=== PATIENT | female | born 1965 | race Caucasian/White ===

== ENCOUNTER 2016-09-08 15:40 | Inpatient (IN) | payer OTHER ==
[~2016-09-08] VITALS: Ht 170.2 cm; Wt 80.4 kg
[~2016-09-08 15:40] MED LIST: CARD120T4 PO; ESTR.625 PO; FURO1TAB60 PO; GABA600T PO; INSU1INJ14 SQ; LEVO25TA4 PO; LISI10TA3 PO; MS C30TA PO; POTA8TAB PO; PROT40TA PO; TOPA100T11 PO; XARE10TA PO; ZITHTAB PO
[2016-09-08 15:42] VITALS: BP 146/74; PULSE 92; RESP 20; TEMP 98.2; O2SAT 97
--- NOTE | 2016-09-08 16:09 | PD ---
Physical Exam Time Seen by Provider: 16:[address] Becerril sent for admission to hospital with consult to podiatry for IV antibx, MRI of R foot. Pt has R foot diabetic ulcer w/ cellulitis and questionable sepsis. Deneis nausea w/o vomiting. Denies fever. Right foot sx started 4 days ago. VSS Seen in triage. Awaiting bed placement. Data Data Last Documented VS Vital Signs Date Time Temp Pulse Resp B/P Pulse Ox O2 Delivery O2 Flow Rate FiO2 09/08/16 15:42 98.2 92 20 146/74 97 Room Air MDM Supervised Visit with LEÓN: Sofía Stevens Sep 08, 2016 16:09
[2016-09-08] MEDS ORDERED: PIPERACIL-TAZO 4.5 GM PREMIX 100 ML IV STA (17:40)
[2016-09-08] MEDS ORDERED: VANCOMYCIN INJ 1,000 MG in SODIUM CHLOR 0.9% 250 ML INJ 250 ML IV STA (17:40)
[2016-09-08] MEDS ORDERED: SODIUM CHLOR 0.9% 1000 ML INJ 1,000 ML IV ONE ×2 (17:40)
[2016-09-08] MEDS ORDERED: SODIUM CHLOR 0.9% 1000 ML INJ 400 ML IV ONE (17:40)
--- NOTE | 2016-09-08 17:49 | PD ---
HPI Chief Complaint: Skin Problem Time Seen by Provider: 17:47 Travel History International Travel<30 days: No Contact w/Intl Traveler<30days: No Traveled to known affect area: No History of Present Illness HPI Patient comes in at the advice of her airborne mission systems superintendent Dr. Becerril for right foot diabetic ulcer with cellulitis and questionable sepsis. Dr. Becerril patient admitted to the hospitalist, consult to airborne mission systems superintendent Dr. Barnes, IV antibiotics, and MRI. Patient states she first noticed the wound 4 days ago. Patient reports she suffers from neuropathy and normally doesn't feel anything but she is having pain with this when walking or standing and is sending a throbbing pain up her leg. Patient denies any fevers, nausea, vomiting, or known trauma. Patient reports she took one dose of antibiotics last night orally but denies doing anything else. Patient states that her blood sugars are running high and she is feeling not quite her normal self. PFSH Past Medical History Arthritis: Yes (RHEUMATOID) Asthma: No Blood Disorders: No Heart Rhythm Problems: Yes (hx) Cancer: No Cardiovascular Problems: Yes (a fib had ablation and "gone away") High Cholesterol: No Chest Pain: No Congestive Heart Failure: No COPD: No Diabetes: Yes (TYPE 1 DIABETIC) Patient Takes Glucophage: Yes Endocrine: Yes Genitourinary: No Hepatitis: No Hiatal Hernia: No Hypertension: Yes Immune Disorder: Yes (rheumatoid) Musculoskeletal: No Neurologic: No Psychiatric: No Reproductive: Yes (hx endometrisosis, ovarian cyst) Respiratory: No Thyroid Disease: Yes (HYPOTHYROIDISM) ?: Not Past Surgical History Abdominal Surgery: Yes (APPENDECTOMY) AICD: No Appendectomy: Yes Eye Surgery: Yes (RIGHT EYE SURGERY FOR SCLERAL REINFORCEMENT, cataracts) Gynecologic Surgery: Yes (HYSTERECTOMY) Hysterectomy: Yes Joint Replacement: No Neurologic Surgery: Yes (LUMBAR LAMINECTOMY) Pacemaker: No Other Surgery: Yes (BREAST SURGERY) Social History Alcohol Use: No Tobacco Use: No Substance Use: No Allergies-Medications (Allergen,Severity, Reaction): Coded Allergies: No Known Allergies (Verified , 09/08/16) Reported Meds & Prescriptions Reported Meds & Active Scripts Active Reported Synthroid (Levothyroxine Sodium) 300 Mcg Tab 300 Mcg PO DAILY Covaryx (Estrogens, Esterified-Methyltestosterone) 1.25-2.5 Mg Tab 1 Tab PO HS Xarelto (Rivaroxaban) 10 Mg Tab 10 Mg PO EVERY OTHER DAY @ HS Tresiba Flextouch Pen Inj (Insulin Degludec Inj) 300 unit/3 ML Pen 50 Units SQ HS Topamax (Topiramate) 100 Mg Tab 100 Mg PO BID Ms Contin (Morphine Sulfate) 30 Mg Tab 30 Mg PO HS Lisinopril 10 Mg Tab 10 Mg PO HS Lasix (Furosemide) 40 Mg Tab 40 Mg PO HS Gabapentin 600 Mg Tab 600 Mg PO HS Potassium Chloride ER (Potassium Chloride) 8 Meq Tab 8 Meq PO HS Review of Systems Except as stated in HPI: all other systems reviewed are Neg Physical Exam Narrative GENERAL: Well-developed, well nourished, in no acute distress, and non-ill appearing. SKIN: Patient is a also plantar surface of the right foot first metatarsal distally. There is surrounding erythematous. Patient reports tenderness to palpation. No crepitus or fluctuation. There is some streaking proximally. It has been outlined by patient's airborne mission systems superintendent. HEAD: Atraumatic. Normocephalic. EYES: Pupils equal and round. EOMI. No scleral icterus. No injection or drainage. ENT: No nasal bleeding or discharge. Mucous membranes pink and moist. NECK: Trachea midline. Supple. No nuclear rigidity. CARDIOVASCULAR: Dorsal pulses 2+, intact, equal bilaterally. Capillary refill less than 2 seconds. RESPIRATORY: No accessory muscle use. No respiratory distress. MUSCULOSKELETAL: No obvious deformities. No clubbing. No cyanosis. No edema. Full range of motion. NEUROLOGICAL: Awake and alert. No obvious cranial nerve deficits. Motor grossly within normal limits. Normal speech. PSYCHIATRIC: Appropriate mood and affect; insight and judgment normal. Data Data Last Documented VS Vital Signs Date Time Temp Pulse Resp B/P Pulse Ox O2 Delivery O2 Flow Rate FiO2 09/08/16 18:27 80 15 112/74 97 Room Air 09/08/16 15:42 98.2 Orders Electrocardiogram (09/08/16 17:40) Complete Blood Count With Diff (09/08/16 17:40) Comprehensive Metabolic Panel (09/08/16 17:40) Prothrombin Time / Inr (Pt) (09/08/16 17:40) Act Partial Throm Time (Ptt) (09/08/16 17:40) Lactic Acid Sepsis Protocol (09/08/16 17:40) Urinalysis - C+S If Indicated (09/08/16 17:40) Blood Culture (09/08/16 17:40) Wound Culture And Gram Stain (09/08/16 17:40) Blood Glucose (09/08/16 17:40) Ecg Monitoring (09/08/16 17:40) Iv Access Insert/Monitor (09/08/16 17:40) Oximetry (09/08/16 17:40) Oxygen Administration (09/08/16 17:40) Piperacil-Tazo 4.5 Gm Premix (Zosyn 4.5 (09/08/16 17:40) Vancomycin Inj (Vancomycin Inj) (09/08/16 17:40) Sodium Chlor 0.9% 1000 Ml Inj (Ns 1000 M (09/08/16 17:40) Sodium Chlor 0.9% 1000 Ml Inj (Ns 1000 M (09/08/16 17:40) Sodium Chlor 0.9% 1000 Ml Inj (Ns 1000 M (09/08/16 17:40) C-Reactive Protein (Crp) (09/08/16 17:46) Westergren Sedimentation Rate (09/08/16 17:46) Foot, Complete ([id number]) (09/08/16 ) Admit To Inpatient (09/08/16 ) Vital Signs (Adult) TOÑO.Q4H (09/08/16 19:41) Diet 1800 Ada Cons Carb (09/09/16 Breakfast) Inpatient Certification (09/08/16 ) Activity Oob With Assistance (09/08/16 19:41) Consult Podiatry (09/08/16 ) Consult Wound / Ostomy Nurse (09/08/16 ) Insulin Aspart Supplemtl Scale (Novolog (09/08/16 21:00) Bedside Glucose TOÑO.AC&HS (09/08/16 19:41) Insulin Detemir Inj (Levemir Inj) (09/08/16 21:00) Admit Order (Ed Use Only) (09/08/16 19:47) Labs Laboratory Tests Test 09/08/16 09/08/16 18:10 19:45 White Blood Count 14.9 TH/MM3 Red Blood Count 3.87 MIL/MM3 Hemoglobin 11.3 GM/DL Hematocrit 33.6 % Mean Corpuscular Volume 86.7 FL Mean Corpuscular Hemoglobin 29.1 PG Mean Corpuscular Hemoglobin 33.5 % Concent Red Cell Distribution Width 14.1 % Platelet Count 348 TH/MM3 Mean Platelet Volume 10.2 FL Neutrophils (%) (Auto) 79.1 % Lymphocytes (%) (Auto) 12.0 % Monocytes (%) (Auto) 7.0 % Eosinophils (%) (Auto) 0.6 % Basophils (%) (Auto) 1.3 % Neutrophils # (Auto) 11.8 TH/MM3 Lymphocytes # (Auto) 1.8 TH/MM3 Monocytes # (Auto) 1.0 TH/MM3 Eosinophils # (Auto) 0.1 TH/MM3 Basophils # (Auto) 0.2 TH/MM3 CBC Comment DIFF FINAL Differential Comment Erythrocyte Sedimentation Rate 54 mm/hr Prothrombin Time 9.9 SEC Prothromb Time International 0.9 RATIO Ratio Activated Partial 28.0 SEC Thromboplast Time Sodium Level 135 MEQ/L Potassium Level 3.8 MEQ/L Chloride Level 100 MEQ/L Carbon Dioxide Level 29.2 MEQ/L Anion Gap 6 MEQ/L Blood Urea Nitrogen 24 MG/DL Creatinine 1.29 MG/DL Estimat Glomerular Filtration 44 ML/MIN Rate Random Glucose 126 MG/DL Lactic Acid Level 0.8 mmol/L Calcium Level 8.8 MG/DL Total Bilirubin 0.3 MG/DL Aspartate Amino Transf 17 U/L (AST/SGOT) Alanine Aminotransferase 29 U/L (ALT/SGPT) Alkaline Phosphatase 99 U/L C-Reactive Protein 11.00 MG/DL Total Protein 7.6 GM/DL Albumin 3.4 GM/DL Urine Color YELLOW Urine Turbidity CLEAR Urine pH 7.0 Urine Specific [place] 1.008 Urine Protein NEG mg/dL Urine Glucose (UA) NEG mg/dL Urine Ketones NEG mg/dL Urine Occult Blood NEG Urine Nitrite NEG Urine Bilirubin NEG Urine Urobilinogen LESS THAN 2.0 MG/DL Urine Leukocyte Esterase NEG Urine RBC LESS THAN 1 /hpf Urine WBC LESS THAN 1 /hpf Urine Squamous Epithelial 1 /hpf Cells Microscopic Urinalysis Comment CATH-CULT NOT IND MDM Medical Decision Making Medical Screen Exam Complete: Yes Emergency Medical Condition: Yes Differential Diagnosis Diabetic wound infection, cellulitis, sepsis, osteomyelitis, other Narrative Course Patient was seen and examined. Initial laboratory lactic signs are obtained and reviewed. Patient given IV antibiotics. Discussed patient with Dr. Mccabe , who saw and evaluated the patient and is in agreement with plan of care and disposition. Patient is agreeable for admission. All questions were answered. Physician Communication Physician Communication [address] Garcia, who is agreeable to admit the patient to Dr. Bernardo's service. Diagnosis Primary Impression: Diabetic foot ulcer associated with type 1 diabetes mellitus Qualified Code: E10.621 - Diabetic ulcer of right foot associated with type 1 diabetes mellitus, unspecified part of foot, unspecified ulcer stage Additional Impression: Cellulitis Qualified Code: L03.115 - Cellulitis of right lower extremity Admitting Information Admitting Physician Requests: Admit Condition: Stable Jay Leigh Sep 08, 2016 17:49
[2016-09-08] MEDS ORDERED: SYNT300T PO (18:23)
[2016-09-08] MEDS ORDERED: COVATAB PO (18:23)
[2016-09-08 18:27] VITALS: BP 112/74; PULSE 80; RESP 15; O2SAT 97
[2016-09-08 18:32] LABS: AUTOMATED NEUTROPHIL # 11.8 TH/MM3 (1.8-7.7); BASOPHIL # 0.2 TH/MM3 (0-0.2); BASOPHIL % 1.3 % (0.0-2.0); EOSINOPHIL # 0.1 TH/MM3 (0-0.4); EOSINOPHIL % 0.6 % (0.0-4.0); HEMATOCRIT 33.6 % (35.0-46.0); HEMO FLAGS DIFF FINAL; LYMPHOCYTE # 1.8 TH/MM3 (1.0-4.8); MEAN CELL VOLUME 86.7 FL (80.0-100.0); MEAN CORPUSCULAR HEMOGLOBIN 29.1 PG (27.0-34.0); MEAN CORPUSCULAR HGB CONC 33.5 % (32.0-36.0); NEUT % 79.1 % (16.0-70.0); PLATELET COUNT 348 TH/MM3 (150-450); RED BLOOD COUNT 3.87 MIL/MM3 (4.00-5.30); RED CELL DISTRIBUTION WIDTH 14.1 % (11.6-17.2); WHITE BLOOD COUNT 14.9 TH/MM3 (4.0-11.0)
[2016-09-08 18:43] LABS: INTERNATIONAL NORMALIZED RATIO 0.9 RATIO; PROTHROMBIN TIME - PATIENT 9.9 SEC (9.8-11.6)
[2016-09-08 18:46] LABS: ANION GAP 6 MEQ/L (5-15); AST (GOT) 17 U/L (15-37); BICARBONATE 29.2 MEQ/L (21.0-32.0); BLOOD UREA NITROGEN 24 MG/DL (7-18); CHLORIDE 100 MEQ/L (98-107); GLOMERULAR FILTRATION RATE 44 ML/MIN (>89); POTASSIUM 3.8 MEQ/L (3.5-5.1); SODIUM (NA) 135 MEQ/L (136-145)
[2016-09-08 18:49] LABS: ALKALINE PHOSPHATASE 99 U/L (45-117); ALT (GPT) 29 U/L (10-53); TOTAL BILIRUBIN ADULT 0.3 MG/DL (0.2-1.0)
--- NOTE | 2016-09-08 19:14 | PD ---
Data Data Last Documented VS Vital Signs Date Time Temp Pulse Resp B/P Pulse Ox O2 Delivery O2 Flow Rate FiO2 09/08/16 18:27 80 15 112/74 97 Room Air 09/08/16 15:42 98.2 Orders Electrocardiogram (09/08/16 17:40) Complete Blood Count With Diff (09/08/16 17:40) Comprehensive Metabolic Panel (09/08/16 17:40) Prothrombin Time / Inr (Pt) (09/08/16 17:40) Act Partial Throm Time (Ptt) (09/08/16 17:40) Lactic Acid Sepsis Protocol (09/08/16 17:40) Urinalysis - C+S If Indicated (09/08/16 17:40) Blood Culture (09/08/16:40) Wound Culture And Gram Stain (09/08/16:40) Blood Glucose (09/08/16 17:40) Ecg Monitoring (09/08/16 17:40) Iv Access Insert/Monitor (09/08/16:40) Oximetry (09/08/16:40) Oxygen Administration (09/08/16 17:40) Piperacil-Tazo 4.5 Gm Premix (Zosyn 4.5 (09/08/16 17:40) Vancomycin Inj (Vancomycin Inj) (09/08/16 17:40) Sodium Chlor 0.9% 1000 Ml Inj (Ns 1000 M (09/08/16 17:40) Sodium Chlor 0.9% 1000 Ml Inj (Ns 1000 M (09/08/16 17:40) Sodium Chlor 0.9% 1000 Ml Inj (Ns 1000 M (09/08/16 17:40) C-Reactive Protein (Crp) (09/08/16 17:46) Westergren Sedimentation Rate (09/08/16 17:46) Foot, Complete ([id number]) (09/08/16 ) Labs Laboratory Tests Test 09/08/16 18:10 White Blood Count 14.9 TH/MM3 Red Blood Count 3.87 MIL/MM3 Hemoglobin 11.3 GM/DL Hematocrit 33.6 % Mean Corpuscular Volume 86.7 FL Mean Corpuscular Hemoglobin 29.1 PG Mean Corpuscular Hemoglobin 33.5 % Concent Red Cell Distribution Width 14.1 % Platelet Count 348 TH/MM3 Mean Platelet Volume 10.2 FL Neutrophils (%) (Auto) 79.1 % Lymphocytes (%) (Auto) 12.0 % Monocytes (%) (Auto) 7.0 % Eosinophils (%) (Auto) 0.6 % Basophils (%) (Auto) 1.3 % Neutrophils # (Auto) 11.8 TH/MM3 Lymphocytes # (Auto) 1.8 TH/MM3 Monocytes # (Auto) 1.0 TH/MM3 Eosinophils # (Auto) 0.1 TH/MM3 Basophils # (Auto) 0.2 TH/MM3 CBC Comment DIFF FINAL Differential Comment Erythrocyte Sedimentation Rate 54 mm/hr Prothrombin Time 9.9 SEC Prothromb Time International 0.9 RATIO Ratio Activated Partial 28.0 SEC Thromboplast Time Sodium Level 135 MEQ/L Potassium Level 3.8 MEQ/L Chloride Level 100 MEQ/L Carbon Dioxide Level 29.2 MEQ/L Anion Gap 6 MEQ/L Blood Urea Nitrogen 24 MG/DL Creatinine 1.29 MG/DL Estimat Glomerular Filtration 44 ML/MIN Rate Random Glucose 126 MG/DL Lactic Acid Level 0.8 mmol/L Calcium Level 8.8 MG/DL Total Bilirubin 0.3 MG/DL Aspartate Amino Transf 17 U/L (AST/SGOT) Alanine Aminotransferase 29 U/L (ALT/SGPT) Alkaline Phosphatase 99 U/L C-Reactive Protein 11.00 MG/DL Total Protein 7.6 GM/DL Albumin 3.4 GM/DL MDM Supervised Visit with LEÓN: Yes Narrative Course The history, exam, and medical decision-making in the associated midlevel provider note were completed with my assistance. I reviewed and agree with the findings presented. I attest that I had a [id number] encounter with the patient on the same day, and personally performed and documented my assessment and findings in the medical record. *My assessment and Findings: This is a 51-year-old female who has a diabetic foot infection who was sent in by Dr. Becerril for antibiotic therapy. She is nontoxic appearing. Labs were obtained and patient was admitted. Lyn Mccabe MD Sep 08, 2016 19:14
--- NOTE | 2016-09-08 19:42 | RADRPT ---
EXAM DATE/TIME: 09/08/2016 19:21 [facility] COMPARISON: No previous studies available for comparison. INDICATIONS : Right foot infection with open wound MEDICAL HISTORY : Diabetes mellitus type II. Hypertension SURGICAL HISTORY : Appendectomy. Hysterectomy. Fusion, lumbar. ENCOUNTER: Initial ACUITY: 3 days PAIN SCORE: 7/10 LOCATION: Right Foot FINDINGS: Three view examination of the right foot demonstrates no soft tissue swelling, dislocation, or fractu re. The tarsal bones appear intact. The interphalangeal and metatarsophalangeal joints are intact. The calcaneus is intact. Bony mineralization is normal. CONCLUSION: Unremarkable examination of the right foot. Isidro Fernandez MD on September 08, 2016 at 19:40 Board Certified Radiologist. This report was verified electronically.
[2016-09-08 19:49] VITALS: O2SAT 97
[2016-09-08 19:50] VITALS: BP 118/68; PULSE 82; RESP 18; O2SAT 99
[2016-09-08] MEDS ORDERED: DEXTROSE 50% IN WATER 50 ML VIAL(D50) IV PUSH PRN (20:00)
[2016-09-08] MEDS ORDERED: GLUCAGON 1 MG/ML VIAL OTHER PRN (20:00)
[2016-09-08 20:05] LABS: BLOOD, URINE NEG (NEG); GLUCOSE,URINE NEG (NEG); KETONE, URINE NEG (NEG); NITRITE,URINE NEG (NEG); SQUAMOUS EPITHELIAL CELL URINE 1 /hpf (0-5); URINE COLOR YELLOW (YELLW/STRAW)
--- NOTE | 2016-09-08 20:10 | HHI.HP ---
HPI Service [facility] Hospitalists Primary Care Physician Chet Silva MD Admission Diagnosis diabetic infected foot ulcer Chief Complaint: Foot ulcer, sent here by machine whitener Travel History International Travel<30 Days: No Contact w/Intl Traveler <30 Da: No Traveled to Known Affected Are: No Sepsis Criteria SIRS Criteria (2 or more): WBC > 71536, < 4000 or > 10% bands History of Present Illness Patient with poorly controlled type 1 diabetes and diabetic foot ulcer comes in at the advice of her machine whitener Dr. Becerril for right foot diabetic ulcer with cellulitis and questionable sepsis. Her machine whitener reportedly requested that patient be admitted to the hospitalist consult to machine whitener Dr. Barnes. Patient states she first noticed the wound 4 days ago however review of her outpatient chart reveals that she's had an ulcer on this foot for several months. Patient reports she suffers from neuropathy and normally doesn't feel anything but she is having pain in the right foot with walking and is sending a throbbing pain into her leg. Patient denies any fevers, nausea, vomiting. Patient reports she took one dose of antibiotics last night orally as well as anything else. Patient states that her blood sugars are running high and she is feeling quite her normal self. She overall feels well. Her last hemoglobin A1c was 10.6 in April and prior to that was 12.9 in January 2016. Review of Systems Constitutional: COMPLAINS OF: Fatigue, DENIES: Diaphoretic episodes, Fever, Weight gain, Weight loss, Chills, Dizziness, Change in appetite, Night Sweats Eyes: DENIES: Blurred vision, Diplopia, Eye inflammation, Eye pain, Vision loss , Photosensitivity, Double Vision Ears, nose, mouth, throat: DENIES: Tinnitus, Hearing loss, Vertigo, Nasal discharge, Oral lesions, Throat pain, Hoarseness, Ear Pain, Running Nose, Epistaxis, Sinus Pain, Toothache, Odynophagia Respiratory: DENIES: Apneas, Cough, Snoring, Wheezing, Hemoptysis, Sputum production, Shortness of breath Cardiovascular: DENIES: Chest pain, Palpitations, Syncope, Dyspnea on Exertion , PND, Lower Extremity Edema, Orthopnea, Claudication Gastrointestinal: DENIES: Abdominal pain, Black stools, Bloody stools, BRB per rectum, Constipation, Diarrhea, GERD, Nausea, Reflux, Vomiting, Difficulty Swallowing, Anorexia, See HPI Musculoskeletal: COMPLAINS OF: Joint pain Hematologic/lymphatic: COMPLAINS OF: Bruising Neurologic: DENIES: Abnormal gait, Headache, Localized weakness, Paresthesias, Seizures, Speech Problems, Tremor, Poor Balance Psychiatric: COMPLAINS OF: Anxiety Other right foot wound Past Family Social History Past Medical History Atrial fibrillation Chronic viral hepatitis C Chronic pain Poorly controlled type 1 diabetes with neuropathy History of diabetic ketoacidosis Hypertension Hyperlipidemia Hypothyroidism Obesity Chronic opioid use Posttraumatic stress disorder PSVT Vitamin D deficiency Rheumatoid arthritis Past Surgical History Appendectomy Coronary artery bypass graft Right cataract surgery April 2016 Hysterectomy 2002 Salpingo-oophorectomy 2002 L5-S1 semi-laminectomy with lysis of adhesion and resection of large herniated nucleus pulposus in 2008 Reported Medications Zithromax Z-Shad (Azithromycin) 250 Mg Dspk 250 Mg PO DIRECTED 500 MG (2 tabs) day 1, then 1 tab days 2-5. Xarelto (Rivaroxaban) 10 Mg Tab 10 Mg PO DAILY Tresiba Flextouch Pen Inj (Insulin Degludec Inj) 300 unit/3 ML Pen 50 Units SQ DAILY Topamax (Topiramate) 100 Mg Tab 100 Mg PO BID Protonix (Pantoprazole Sodium) 40 Mg Tab 40 Mg PO DAILY Premarin (Estrogens Conjugated) 0.625 Mg Tab 0.625 Mg PO DAILY Ms Contin (Morphine Sulfate) 30 Mg Tab 30 Mg PO DAILY Lisinopril 10 Mg Tab 10 Mg PO DAILY Levothyroxine (Levothyroxine Sodium) 25 Mcg Tab 25 Mcg PO DAILY TAKE WITH ONE 200MCG TABLET TO EQUAL 225MCG Lasix (Furosemide) 40 Mg Tab 40 Mg PO DAILY Gabapentin 600 Mg Tab 600 Mg PO HS Cardizem (Diltiazem HCl) 120 Mg Tab 120 Mg PO BID Potassium Chloride ER (Potassium Chloride) 8 Meq Tab 8 Meq PO DAILY Allergies: Coded Allergies: No Known Allergies (Verified , 09/08/16) Family History Coronary artery disease in both parents Strong family history of diabetes Family history of lung cancer, hypertension, thyroid disease Social History No tobacco in over 20 yrs, prior smoked <1/2 ppd for <10 yrs. 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 SKIN: erythematous patches on upper chest, neck; right foot with ulcerated wound on plantar aspect and cellulitic changes on dorsal aspect progressing into lower right puga. HEAD: Atraumatic. Normocephalic. No temporal or scalp tenderness. EYES: Pupils equal round and reactive. Extraocular motions intact. No scleral icterus. No injection or drainage. ENT: Nose without bleeding, purulent drainage or septal hematoma. Throat without erythema, tonsillar hypertrophy or exudate. Uvula midline. Airway patent. NECK: Trachea midline. No JVD or lymphadenopathy. Supple, nontender, no meningeal signs. CARDIOVASCULAR: Regular rate and rhythm without murmurs, gallops, or rubs. RESPIRATORY: Clear to auscultation. Breath sounds equal bilaterally. No wheezes , rales, or rhonchi. GASTROINTESTINAL: Abdomen soft, non-tender, nondistended. No hepato-splenomegaly , or palpable masses. No guarding. bs wnl. MUSCULOSKELETAL: right foot as noted above. No joint tenderness, effusion, or edema noted. No calf tenderness. Negative Homans sign bilaterally. NEUROLOGICAL: Awake and alert. Cranial nerves II through XII intact. Motor and sensory grossly within normal limits. Five out of 5 muscle strength in all muscle groups. Normal speech. Laboratory Laboratory Tests Test 09/08/16 18:10 White Blood Count 14.9 Red Blood Count 3.87 Hemoglobin 11.3 Hematocrit 33.6 Mean Corpuscular Volume 86.7 Mean Corpuscular Hemoglobin 29.1 Mean Corpuscular Hemoglobin 33.5 Concent Red Cell Distribution Width 14.1 Platelet Count 348 Mean Platelet Volume 10.2 Neutrophils (%) (Auto) 79.1 Lymphocytes (%) (Auto) 12.0 Monocytes (%) (Auto) 7.0 Eosinophils (%) (Auto) 0.6 Basophils (%) (Auto) 1.3 Neutrophils # (Auto) 11.8 Lymphocytes # (Auto) 1.8 Monocytes # (Auto) 1.0 Eosinophils # (Auto) 0.1 Basophils # (Auto) 0.2 CBC Comment DIFF FINAL Differential Comment Erythrocyte Sedimentation Rate 54 Prothrombin Time 9.9 Prothromb Time International 0.9 Ratio Activated Partial 28.0 Thromboplast Time Sodium Level 135 Potassium Level 3.8 Chloride Level 100 Carbon Dioxide Level 29.2 Anion Gap 6 Blood Urea Nitrogen 24 Creatinine 1.29 Estimat Glomerular Filtration 44 Rate Random Glucose 126 Lactic Acid Level 0.8 Calcium Level 8.8 Total Bilirubin 0.3 Aspartate Amino Transf 17 (AST/SGOT) Alanine Aminotransferase 29 (ALT/SGPT) Alkaline Phosphatase 99 C-Reactive Protein 11.00 Total Protein 7.6 Albumin 3.4 Date/Time Procedure Status Source Growth 09/08/16 18:15 Aerobic Blood Culture Received Blood Peripheral Pending 09/08/16 18:15 Anaerobic Blood Culture Received Blood Peripheral Pending 09/08/16 18:10 Gram Stain - Final Resulted Wound Foot 09/08/16 18:10 Wound Culture Resulted Wound Foot Pending Result Diagram: 09/08/16 1810 09/08/16 1810 Imaging Last 72 hours Impressions Foot X-Ray 09/08/16 0000 Signed Impressions: Service Date/Time: August 19:21 - CONCLUSION: Unremarkable examination of the right foot. Isidro Fernandez MD Assessment and Plan Problem List: (1) Diabetic foot ulcer associated with type 1 diabetes mellitus Status: Acute Plan: Continue antibiotics, consult podiatry and wound care (2) IDDM (insulin dependent diabetes mellitus) Status: Chronic Plan: Provide sliding scale insulin as well as basal insulin. Follow bedside glucose. (3) HTN (hypertension) Status: Chronic Plan: Good control presently. Hold medication. (4) Hypothyroidism Status: Chronic Plan: TSH was quite suppressed in April. Recheck. (5) Hyperlipidemia Status: Chronic Plan: Doesn't appear to be on statin. Would likely benefit. We'll have this addressed further as outpatient. (6) Atrial fibrillation Status: Resolved Plan: s/p ablation several years ago. Patient is still on Xarelto, but QOD and may be getting off completely when she sees Dr Gupta. Most recent outpatient EKGs demonstrate sinus rhythm. Code Status full Discussed Condition With Pt, her spouse, ER provider Physician Certification 2 Midnight Certification Type: Admission for Inpatient Services Order for Inpatient Services The services are ordered in accordance with Medicare regulations or non- Medicare payer requirements, as applicable. In the case of services not specified as inpatient-only, they are appropriately provided as inpatient services in accordance with the 2-midnight benchmark. Estimated LOS (days): 2 days is the estimated time the patient will need to remain in the hospital, assuming treatment plan goals are met and no additional complications. Post-Hospital Plan: Home Problem Qualifiers (1) Diabetic foot ulcer associated with type 1 diabetes mellitus: Qualified Code: E10.621 - Diabetic ulcer of right foot associated with type 1 diabetes mellitus, unspecified part of foot, unspecified ulcer stage (2) HTN (hypertension): Qualified Code: I10 - Essential hypertension (3) Atrial fibrillation: Qualified Code: I48.0 - Paroxysmal atrial fibrillation Rufino Garcia MD PhD Sep 08, 2016 20:10
[2016-09-08 20:15] LABS: COMMENT (UR) CATH-CULT NOT IND; CULTURE IF INDICATED CATH CULTURE NOT IND
[2016-09-08] MEDS: INSULIN ASPART SUPPLEMENTAL SCALE SQ SCH (21:00)
[2016-09-08] MEDS: GABAPENTIN 300 MG CAP PO SCH (21:05)
[2016-09-08] MEDS: MORPHINE SULFATE 30 MG CONTROLLED RELEASE TAB PO SCH (21:05)
[2016-09-08] MEDS: FUROSEMIDE 40 MG TAB PO SCH (21:05)
[2016-09-08] MEDS ORDERED: ONDANSETRON HCL 4 MG/2 ML VIAL IV PUSH ONE (21:15)
[2016-09-08] MEDS: TOPIRAMATE 100 MG TAB PO SCH (21:16)
[2016-09-08] MEDS: INSULIN DETEMIR 100 UNITS/ML VIAL SQ SCH (21:16)
[2016-09-08] MEDS: POTASSIUM CHLORIDE 8 MEQ CONTROLLED RELEASE TAB PO SCH (21:16)
[2016-09-08 21:40] LABS: FREE T4 2.12 NG/DL (0.76-1.46)
[2016-09-08 22:00] VITALS: BP 129/74; PULSE 84; RESP 18; O2SAT 97
--- NOTE | 2016-09-08 22:50 | EKG ---
Date Performed: 09/08/2016 Time Performed: 19:44:52 PTAGE: 51 years EKG: Sinus rhythm NORMAL ECG PREVIOUS TRACING : 10/29/2015 17.40 No significant change from previous tracing noted. DOCTOR: Klaus Sr Interpretating Date/Time 09/08/2016 22:49:22
[2016-09-09 01:15] VITALS: BP 127/58; PULSE 67; RESP 17; TEMP 98.3; O2SAT 96
[2016-09-09] MEDS: PIPERACIL-TAZO 3.375 GM PREMIX 50 ML IV SCH ×3 (01:47→18:06)
[2016-09-09] MEDS: MORPHINE SULFATE 4 MG/ML INJ IV PUSH PRN ×5 (01:56→22:15)
[2016-09-09 04:00] VITALS: BP 125/60; PULSE 64; RESP 18; TEMP 98.1; O2SAT 96
[2016-09-09] MEDS ORDERED: LEVOTHYROXINE SODIUM 150 MCG TAB PO SCH (06:00)
[2016-09-09] MEDS: INSULIN ASPART SUPPLEMENTAL SCALE SQ SCH ×4 (06:42→21:00)
[2016-09-09 07:32] LABS: AUTOMATED NEUTROPHIL # 6.7 TH/MM3 (1.8-7.7); BASOPHIL # 0.1 TH/MM3 (0-0.2); BASOPHIL % 0.8 % (0.0-2.0); EOSINOPHIL # 0.2 TH/MM3 (0-0.4); EOSINOPHIL % 1.9 % (0.0-4.0); HEMATOCRIT 29.8 % (35.0-46.0); HEMO FLAGS DIFF FINAL; LYMPH % 11.5 % (9.0-44.0); MEAN CELL VOLUME 87.9 FL (80.0-100.0); MEAN CORPUSCULAR HEMOGLOBIN 29.4 PG (27.0-34.0); MEAN CORPUSCULAR HGB CONC 33.4 % (32.0-36.0); MONO % 9.5 % (0.0-8.0); NEUT % 76.3 % (16.0-70.0); PLATELET COUNT 280 TH/MM3 (150-450); RED BLOOD COUNT 3.38 MIL/MM3 (4.00-5.30); RED CELL DISTRIBUTION WIDTH 14.1 % (11.6-17.2); WHITE BLOOD COUNT 8.8 TH/MM3 (4.0-11.0)
[2016-09-09 07:57] LABS: ALKALINE PHOSPHATASE 94 U/L (45-117); ALT (GPT) 51 U/L (10-53); ANION GAP 6 MEQ/L (5-15); AST (GOT) 49 U/L (15-37); BICARBONATE 27.8 MEQ/L (21.0-32.0); BLOOD UREA NITROGEN 19 MG/DL (7-18); CHLORIDE 106 MEQ/L (98-107); GLOMERULAR FILTRATION RATE 43 ML/MIN (>89); POTASSIUM 3.9 MEQ/L (3.5-5.1); SODIUM (NA) 140 MEQ/L (136-145); TOTAL BILIRUBIN ADULT 0.4 MG/DL (0.2-1.0)
[2016-09-09] MEDS: INSULIN DETEMIR 100 UNITS/ML VIAL SQ SCH ×2 (08:23→21:00)
[2016-09-09] MEDS: LEVOTHYROXINE SODIUM 125 MCG TAB PO SCH (08:23)
[2016-09-09 08:35] VITALS: BP 110/62; PULSE 66; RESP 18; TEMP 96.9; O2SAT 100
[2016-09-09] MEDS: TOPIRAMATE 100 MG TAB PO SCH ×2 (10:17→21:09)
[2016-09-09 12:24] VITALS: BP 116/67; PULSE 62; RESP 18; TEMP 96.7; O2SAT 100
--- NOTE | 2016-09-09 14:17 | HHI.PR ---
Subjective Remarks No new complaints. Objective Vitals Vital Signs Date Time Temp Pulse Resp B/P Pulse Ox O2 Delivery O2 Flow Rate FiO2 09/09/16 12:24 96.7 62 18 116/67 100 09/09/16 10:22 17 09/09/16 08:35 96.9 66 18 110/62 100 09/09/16 04:00 Room Air 09/09/16 04:00 98.1 64 18 125/60 96 09/09/16 01:15 98.3 67 17 127/58 96 09/09/16 00:30 Room Air 09/08/16 22:00 84 18 129/74 97 Room Air 09/08/16 19:50 82 18 118/68 99 Room Air 09/08/16 19:49 95 Room Air 09/08/16 19:49 97 Room Air 09/08/16 18:27 80 15 112/74 97 Room Air 09/08/16 15:42 98.2 92 20 146/74 97 Room Air 09/08/16 09/08/16 09/09/16 15:00 23:00 07:00 Intake Total 450 ml Balance 450 ml Intake Oral 400 ml IV Total 50 ml # Voids 2 # Bowel Movements 0 Result Diagram: 09/09/16 0656 09/09/16 0656 Imaging Last 72 hours Impressions Foot X-Ray 09/08/16 0000 Signed Impressions: Service Date/Time: August 19:21 - CONCLUSION: Unremarkable examination of the right foot. Isidro Fernandez MD A/P Problem List: (1) Diabetic foot ulcer associated with type 1 diabetes mellitus Status: Acute Plan: Continue antibiotics, consult podiatry and wound care (2) IDDM (insulin dependent diabetes mellitus) Status: Chronic Plan: Provide sliding scale insulin as well as basal insulin. Follow bedside glucose. (3) HTN (hypertension) Status: Chronic Plan: Good control presently. Hold medication. (4) Hypothyroidism Status: Chronic Plan: TSH was quite suppressed in April. Recheck. (5) Hyperlipidemia Status: Chronic Plan: Doesn't appear to be on statin. Would likely benefit. We'll have this addressed further as outpatient. (6) Atrial fibrillation Status: Resolved Plan: s/p ablation several years ago. Patient is still on Xarelto, but QOD and may be getting off completely when she sees Dr Gupta. Most recent outpatient EKGs demonstrate sinus rhythm. Problem Qualifiers (1) Diabetic foot ulcer associated with type 1 diabetes mellitus: Qualified Code: E10.621 - Diabetic ulcer of right foot associated with type 1 diabetes mellitus, unspecified part of foot, unspecified ulcer stage (2) HTN (hypertension): Qualified Code: I10 - Essential hypertension (3) Atrial fibrillation: Qualified Code: I48.0 - Paroxysmal atrial fibrillation Juan Manuel Bernardo DO Sep 09, 2016 14:16
--- NOTE | 2016-09-09 14:28 | HHI.PR ---
Subjective Remarks No new complaints. Objective Vitals Vital Signs Date Time Temp Pulse Resp B/P Pulse Ox O2 Delivery O2 Flow Rate FiO2 09/09/16 12:24 96.7 62 18 116/67 100 09/09/16 10:22 17 09/09/16 08:35 96.9 66 18 110/62 100 09/09/16 04:00 Room Air 09/09/16 04:00 98.1 64 18 125/60 96 09/09/16 01:15 98.3 67 17 127/58 96 09/09/16 00:30 Room Air 09/08/16 22:00 84 18 129/74 97 Room Air 09/08/16 19:50 82 18 118/68 99 Room Air 09/08/16 19:49 95 Room Air 09/08/16 19:49 97 Room Air 09/08/16 18:27 80 15 112/74 97 Room Air 09/08/16 15:42 98.2 92 20 146/74 97 Room Air 09/08/16 09/08/16 09/09/16 15:00 23:00 07:00 Intake Total 450 ml Balance 450 ml Intake Oral 400 ml IV Total 50 ml # Voids 2 # Bowel Movements 0 Result Diagram: 09/09/16 0656 09/09/16 0656 Imaging Last 72 hours Impressions Foot X-Ray 09/08/16 0000 Signed Impressions: Service Date/Time: August 19:21 - CONCLUSION: Unremarkable examination of the right foot. Isidro Fernandez MD Objective Remarks GENERAL: This is a well-nourished, well-developed patient, in no apparent distress. CARDIOVASCULAR: Regular rate and rhythm without murmurs, gallops, or rubs. RESPIRATORY: Clear to auscultation. Breath sounds equal bilaterally. No wheezes , rales, or rhonchi. GASTROINTESTINAL: Abdomen soft, non-tender, nondistended. Normal active bowel sounds MUSCULOSKELETAL: shallow ulceration near plantar and lateral surface of right foot overlying MTP joint NEURO: Alert & Oriented x4 to person, place, time, situation. Moves all ext x4 A/P Problem List: (1) Diabetic foot ulcer associated with type 1 diabetes mellitus Status: Acute Plan: - await Podiatry - Zosyn - will d/w Dr. Barnes (2) IDDM (insulin dependent diabetes mellitus) Status: Chronic Plan: - levemir - SSI (3) HTN (hypertension) Status: Chronic Plan: - stable - off home BP mediation (4) Hypothyroidism Status: Chronic Plan: TSH was quite suppressed in April. Recheck. (5) Hyperlipidemia Status: Chronic Plan: Doesn't appear to be on statin. Would likely benefit. We'll have this addressed further as outpatient. (6) Atrial fibrillation Status: Resolved Plan: s/p ablation several years ago. Patient is still on Xarelto, but QOD and may be getting off completely when she sees Dr Gupta. Most recent outpatient EKGs demonstrate sinus rhythm. Problem Qualifiers (1) Diabetic foot ulcer associated with type 1 diabetes mellitus: Qualified Code: E10.621 - Diabetic ulcer of right foot associated with type 1 diabetes mellitus, unspecified part of foot, unspecified ulcer stage (2) HTN (hypertension): Qualified Code: I10 - Essential hypertension (3) Atrial fibrillation: Qualified Code: I48.0 - Paroxysmal atrial fibrillation Juan Manuel Bernardo DO Sep 09, 2016 14:28
[2016-09-09 16:00] VITALS: BP 102/64; PULSE 73; RESP 18; TEMP 96.6; O2SAT 100
--- NOTE | 2016-09-09 16:45 | PD.CONS ---
History of Present Illness Service Podiatry Consult Requested By Reason for Consult Right foot wound, cellulitis Primary Care Physician Chet Silva MD Diagnoses: Past Family Social History Allergies: Coded Allergies: No Known Allergies (Verified , 09/08/16) Physical Exam Vital Signs Vital Signs Date Time Temp Pulse Resp B/P Pulse Ox O2 Delivery O2 Flow Rate FiO2 09/09/16 16:00 96.6 73 18 102/64 100 09/09/16 12:24 96.7 62 18 116/67 100 09/09/16 10:22 17 09/09/16 08:35 96.9 66 18 110/62 100 09/09/16 08:20 Room Air 09/09/16 04:00 Room Air 09/09/16 04:00 98.1 64 18 125/60 96 09/09/16 01:15 98.3 67 17 127/58 96 09/09/16 00:30 Room Air 09/08/16 22:00 84 18 129/74 97 Room Air 09/08/16 19:50 82 18 118/68 99 Room Air 09/08/16 19:49 95 Room Air 09/08/16 19:49 97 Room Air 09/08/16 18:27 80 15 112/74 97 Room Air Physical Exam GENERAL: This is a well-nourished, well-developed patient, in no apparent distress. SKIN: No rashes, ecchymoses or lesions. Cool and dry. HEAD: Atraumatic. Normocephalic. No temporal or scalp tenderness. EYES: Pupils equal round and reactive. Extraocular motions intact. No scleral icterus. No injection or drainage. ENT: Nose without bleeding, purulent drainage or septal hematoma. Throat without erythema, tonsillar hypertrophy or exudate. Uvula midline. Airway patent. NECK: Trachea midline. No JVD or lymphadenopathy. Supple, nontender, no meningeal signs. CARDIOVASCULAR: Regular rate and rhythm without murmurs, gallops, or rubs. RESPIRATORY: Clear to auscultation. Breath sounds equal bilaterally. No wheezes , rales, or rhonchi. GASTROINTESTINAL: Abdomen soft, non-tender, nondistended. No hepato-splenomegaly , or palpable masses. No guarding. MUSCULOSKELETAL: Extremities without clubbing, cyanosis, or edema. No joint tenderness, effusion, or edema noted. No calf tenderness. Negative Homans sign bilaterally. NEUROLOGICAL: Awake and alert. Cranial nerves II through XII intact. Motor and sensory grossly within normal limits. Five out of 5 muscle strength in all muscle groups. Normal speech. Laboratory Laboratory Tests Test 09/08/16 09/08/16 09/09/16 18:10 19:45 06:56 White Blood Count 14.9 8.8 Red Blood Count 3.87 3.38 Hemoglobin 11.3 9.9 Hematocrit 33.6 29.8 Mean Corpuscular Volume 86.7 87.9 Mean Corpuscular Hemoglobin 29.1 29.4 Mean Corpuscular Hemoglobin 33.5 33.4 Concent Red Cell Distribution Width 14.1 14.1 Platelet Count 348 280 Mean Platelet Volume 10.2 10.1 Neutrophils (%) (Auto) 79.1 76.3 Lymphocytes (%) (Auto) 12.0 11.5 Monocytes (%) (Auto) 7.0 9.5 Eosinophils (%) (Auto) 0.6 1.9 Basophils (%) (Auto) 1.3 0.8 Neutrophils # (Auto) 11.8 6.7 Lymphocytes # (Auto) 1.8 1.0 Monocytes # (Auto) 1.0 0.8 Eosinophils # (Auto) 0.1 0.2 Basophils # (Auto) 0.2 0.1 CBC Comment DIFF FINAL DIFF FINAL Differential Comment Erythrocyte Sedimentation Rate 54 Prothrombin Time 9.9 Prothromb Time International 0.9 Ratio Activated Partial 28.0 Thromboplast Time Sodium Level 135 140 Potassium Level 3.8 3.9 Chloride Level 100 106 Carbon Dioxide Level 29.2 27.8 Anion Gap 6 6 Blood Urea Nitrogen 24 19 Creatinine 1.29 1.32 Estimat Glomerular Filtration 44 43 Rate Random Glucose 126 254 Lactic Acid Level 0.8 Calcium Level 8.8 8.3 Total Bilirubin 0.3 0.4 Aspartate Amino Transf 17 49 (AST/SGOT) Alanine Aminotransferase 29 51 (ALT/SGPT) Alkaline Phosphatase 99 94 C-Reactive Protein 11.00 Total Protein 7.6 6.4 Albumin 3.4 2.7 Free Thyroxine 2.12 Thyroid Stimulating Hormone LESS THAN 3rd Gen 0.005 Urine Color YELLOW Urine Turbidity CLEAR Urine pH 7.0 Urine Specific [place] 1.008 Urine Protein NEG Urine Glucose (UA) NEG Urine Ketones NEG Urine Occult Blood NEG Urine Nitrite NEG Urine Bilirubin NEG Urine Urobilinogen LESS THAN 2.0 Urine Leukocyte Esterase NEG Urine RBC LESS THAN 1 Urine WBC LESS THAN 1 Urine Squamous Epithelial 1 Cells Microscopic Urinalysis Comment CATH-CULT NOT IND Date/Time Procedure Status Source Growth 09/08/16 18:15 Aerobic Blood Culture - Preliminary Resulted Blood Peripheral NO GROWTH IN 1 DAY 09/08/16 18:15 Anaerobic Blood Culture - Preliminary Resulted Blood Peripheral NO GROWTH IN 1 DAY 09/08/16 18:10 Gram Stain - Final Resulted Wound Foot 09/08/16 18:10 Wound Culture - Preliminary Resulted Staphylococcus Aureus Result Diagram: 09/09/16 0656 09/09/1656 Imaging Right foot no osseous changes seen Course Right foot palpable pulses No edmea or redness to bilateral lower extremities Right submet 1 ulcer about 1.2 cm x .2 cm granular with indurated borders with no pus or deep trasking Left hallux nail loose with distal indurration no sign of infection with thick nail Assessment and Plan Assessment and Plan Resolving right foot cellulitis Right stable diabetic ulcer-limited to split thickness Left hallux onychomycosis with onycholysis and callus formation Plan is 1-2 more doses of IV abx and then d/c to follwoup with Dr. Becerril Thank you for the consult Musa Barnes DPM Sep 09, 2016 16:45
[2016-09-09 20:00] VITALS: BP 119/68; PULSE 69; RESP 18; TEMP 96.5; O2SAT 99
[2016-09-09] MEDS: POTASSIUM CHLORIDE 8 MEQ CONTROLLED RELEASE TAB PO SCH (20:45)
[2016-09-09] MEDS: FUROSEMIDE 40 MG TAB PO SCH (21:06)
[2016-09-09] MEDS: GABAPENTIN 300 MG CAP PO SCH (21:06)
[2016-09-09] MEDS: MORPHINE SULFATE 30 MG CONTROLLED RELEASE TAB PO SCH (21:08)
[2016-09-10] VITALS: BP 108/59; PULSE 75; RESP 18; TEMP 97.4; O2SAT 96
[2016-09-10] MEDS: PIPERACIL-TAZO 3.375 GM PREMIX 50 ML IV SCH ×2 (02:21→09:12)
[2016-09-10] MEDS ORDERED: ONDANSETRON HCL 4 MG/2 ML VIAL IV PUSH PRN (03:30)
[2016-09-10 04:00] VITALS: BP 113/53; PULSE 71; RESP 18; TEMP 96.1; O2SAT 97
[2016-09-10] MEDS: LEVOTHYROXINE SODIUM 125 MCG TAB PO SCH (06:05)
[2016-09-10] MEDS: INSULIN ASPART SUPPLEMENTAL SCALE SQ SCH ×3 (06:06→16:00)
[2016-09-10 07:59] VITALS: BP 122/57; PULSE 76; RESP 20; TEMP 96.9; O2SAT 96
[2016-09-10] MEDS: INSULIN DETEMIR 100 UNITS/ML VIAL SQ SCH (09:00)
[2016-09-10] MEDS: TOPIRAMATE 100 MG TAB PO SCH (09:12)
[2016-09-10 10:36] LABS: AUTOMATED NEUTROPHIL # 4.6 TH/MM3 (1.8-7.7); BASOPHIL # 0.1 TH/MM3 (0-0.2); BASOPHIL % 1.1 % (0.0-2.0); EOSINOPHIL # 0.2 TH/MM3 (0-0.4); EOSINOPHIL % 2.8 % (0.0-4.0); HEMATOCRIT 34.2 % (35.0-46.0); HEMO FLAGS DIFF FINAL; LYMPH % 25.2 % (9.0-44.0); LYMPHOCYTE # 1.9 TH/MM3 (1.0-4.8); MEAN CELL VOLUME 88.8 FL (80.0-100.0); MEAN CORPUSCULAR HEMOGLOBIN 29.6 PG (27.0-34.0); MEAN CORPUSCULAR HGB CONC 33.3 % (32.0-36.0); MONO % 9.7 % (0.0-8.0); NEUT % 61.2 % (16.0-70.0); PLATELET COUNT 310 TH/MM3 (150-450); RED BLOOD COUNT 3.85 MIL/MM3 (4.00-5.30); RED CELL DISTRIBUTION WIDTH 14.4 % (11.6-17.2); WHITE BLOOD COUNT 7.5 TH/MM3 (4.0-11.0)
[2016-09-10 10:42] LABS: BICARBONATE 24.9 MEQ/L (21.0-32.0); MAGNESIUM 1.7 MG/DL (1.5-2.5); POTASSIUM 4.1 MEQ/L (3.5-5.1)
[2016-09-10 13:11] VITALS: BP 116/60; PULSE 73; RESP 20; TEMP 97.8; O2SAT 98
[2016-09-10 16:28] VITALS: BP 118/59; PULSE 76; RESP 20; TEMP 97.8; O2SAT 96
[2016-09-10] MEDS ORDERED: LEVA500T PO (16:46)
--- NOTE | 2016-09-10 16:51 | HHI.PR ---
Subjective Remarks No new complaints. Objective Vitals Vital Signs Date Time Temp Pulse Resp B/P Pulse Ox O2 Delivery O2 Flow Rate FiO2 09/10/16 16:28 97.8 76 20 118/59 96 09/10/16 13:11 97.8 73 20 116/60 98 09/10/16 07:59 96.9 76 20 122/57 96 09/10/16 04:00 96.1 71 18 113/53 97 09/10/16 00:00 97.4 75 18 108/59 96 09/09/16 22:57 Room Air 09/09/16 20:00 96.5 69 18 119/68 99 09/09/16 09/09/16 09/10/16 15:00 23:00 07:00 Intake Total 360 ml 360 ml 240 ml Balance 360 ml 360 ml 240 ml Intake Oral 360 ml 360 ml 240 ml # Voids 4 1 3 # Bowel Movements 1 0 Result Diagram: 09/10/16 0958 09/10/16 0958 Imaging Last 72 hours Impressions Foot X-Ray 09/08/16 0000 Signed Impressions: Service Date/Time: August 19:21 - CONCLUSION: Unremarkable examination of the right foot. Isidro Fernandez MD Objective Remarks GENERAL: This is a well-nourished, well-developed patient, in no apparent distress. CARDIOVASCULAR: Regular rate and rhythm without murmurs, gallops, or rubs. RESPIRATORY: Clear to auscultation. Breath sounds equal bilaterally. No wheezes , rales, or rhonchi. GASTROINTESTINAL: Abdomen soft, non-tender, nondistended. Normal active bowel sounds MUSCULOSKELETAL: shallow ulceration near plantar and lateral surface of right foot overlying MTP joint NEURO: Alert & Oriented x4 to person, place, time, situation. Moves all ext x4 A/P Problem List: (1) Diabetic foot ulcer associated with type 1 diabetes mellitus Status: Acute Plan: - await Podiatry - Espinoza (09/09, 09/10) - wound cx --> MSSA with broad sensitivity, group B strep - discharge on levaquin 500mg daily x 7d - case d/w Dr. Barnes (09/09/16) - f/u with Dr. Becerril in 1 week (2) IDDM (insulin dependent diabetes mellitus) Status: Chronic Plan: - resume outpt regimen upon discharge - f/u with PCP, Dr. Chet Silva, in 1 week to review treatment for HTN and DM (3) HTN (hypertension) Status: Chronic Plan: - stable - off home BP mediation (4) Hypothyroidism Status: Chronic Plan: - stop levothyroxine for now - f/u with PCP in 1 week to review (5) Hyperlipidemia Status: Chronic Plan: Doesn't appear to be on statin. Would likely benefit. We'll have this addressed further as outpatient. (6) Atrial fibrillation Status: Resolved Plan: s/p ablation several years ago. Patient is still on Xarelto, but QOD and may be getting off completely when she sees Dr Gupta. Most recent outpatient EKGs demonstrate sinus rhythm. Problem Qualifiers (1) Diabetic foot ulcer associated with type 1 diabetes mellitus: Qualified Code: E10.621 - Diabetic ulcer of right foot associated with type 1 diabetes mellitus, unspecified part of foot, unspecified ulcer stage (2) HTN (hypertension): Qualified Code: I10 - Essential hypertension (3) Atrial fibrillation: Qualified Code: I48.0 - Paroxysmal atrial fibrillation Juan Manuel Bernardo DO Sep 10, 2016 16:51
== END 2016-09-10 18:04 | disposition home or self-care (01) | DRG 603 ==
LOC: NEPC 15:40 → NEDA 19:48 → N05A 09-09 00:30
PROVIDERS: ADMIT Hospitalist; ATTEND Hospitalist
DX: L03.115 Cellulitis of right lower limb (principal); E10.42 Type 1 diabetes mellitus with diabetic polyneuropathy; E10.621 Type 1 diabetes mellitus with foot ulcer; B18.2 Chronic viral hepatitis C; E55.9 Vitamin D deficiency, unspecified; E10.65 Type 1 diabetes mellitus with hyperglycemia; E78.5 Hyperlipidemia, unspecified; I10 Essential (primary) hypertension; E03.9 Hypothyroidism, unspecified; F43.10 Post-traumatic stress disorder, unspecified; L60.1 Onycholysis; M06.9 Rheumatoid arthritis, unspecified; Z79.4 Long term (current) use of insulin; Z79.891 Long term (current) use of opiate analgesic; Z87.891 Personal history of nicotine dependence
CPT/HCPCS: 73630; 80048; 80053; 81001; 82948; 83605; 83735; 84439; 84443; 85025; 85610; 85652; 85730; 86140; 86403; 87040; 87070; 87147; 87186; 93005; 96365; J1815; J2270; J2405; J2543; J3370; J7030; J7050

== ENCOUNTER 2017-09-18 06:11 | Day surgery (SDC) | payer OTHER ==
[~2017-09-18] VITALS: Ht 170.2 cm; Wt 80.4 kg
[~2017-09-18 06:11] MED LIST changes: -CARD120T4 PO; +COVATAB PO; -ESTR.625 PO; -LEVO25TA4 PO; -MS C30TA PO; -PROT40TA PO; -TOPA100T11 PO; +TOPI100 PO; -ZITHTAB PO
[2017-09-18] MEDS ORDERED: IOHEXOL 350 MG/ML 50 ML BTL (for Cath Lab) OTHER ONE (06:12)
[2017-09-18] MEDS ORDERED: NS 1000P @30 MLS/HR (KVO) IV SCH (06:30)
[2017-09-18 06:48] VITALS: BP 150/88; PULSE 77; RESP 18; TEMP 98.7; O2SAT 96
[2017-09-18] MEDS ORDERED: MORP-43 PO (06:51)
[2017-09-18] MEDS ORDERED: TOFA1TAB PO (06:51)
[2017-09-18] MEDS ORDERED: CREON12 PO (06:51)
[2017-09-18] MEDS ORDERED: NOVOINJ SQ (06:51)
[2017-09-18] MEDS ORDERED: METO25TA3 PO (06:51)
[2017-09-18] MEDS ORDERED: LEVO-86 PO (06:51)
[2017-09-18] MEDS ORDERED: URSO300C2 PO (06:51)
[2017-09-18] MEDS ORDERED: ESTR.625 PO (06:51)
[2017-09-18] MEDS ORDERED: MIDAZOLAM HCL 2 MG/2 ML VIAL ONE (08:16)
[2017-09-18] MEDS ORDERED: HEPARIN-NS/PF FLUSH BAG 2,000 ML IV FLUSH ONE (08:16)
[2017-09-18] MEDS ORDERED: LIDOCAINE HCL 1% PF 30 ML VIAL ONE (08:17)
[2017-09-18] MEDS ORDERED: LABETALOL HCL 100 MG/20 ML VIAL ONE (08:36)
[2017-09-18] MEDS ORDERED: SODIUM CHLOR 0.9% 1000 ML INJ 1,000 ML IV SCH (08:56)
--- NOTE | 2017-09-18 08:59 | CATHPROC ---
[employer] HIS Report Study Information Study Number Admission Scheduled Start Study Start [id number] Sep 18 2017 6:11AM 09/18/2017 Sep 18 2017 8:14AM [place] Service Cardiac Catheterization Admit Source Facility Department Emergency department [facility] - Pulpit Operator Physician and Clinical Staff Initial Odilon Carmona Data Entry Operator Julieta Myers,SOFIYA Other cathlab, cathlab Recorder Kyle Mccarty RCIS(BS) Scrub Syl Melvin,WING COVERER TECH2 Procedures Performed Procedure Location (Site) Vessel Name Coronary Angiograms LCA Left Coronary Coronary Angiograms RCA Right Coronary L Heart Cath Equipment Time Director Strategy Description Size Mfg Part Number Used/Scraped TRANSDUCER, TRUWAVE [id number] 08:16 DE LA CRUZ MEADE * Used W/STOCKCOCK *[id number] *[id number] *[id number] 08:46 DAIG/ST. DERIAN MEDICAL ANGIOSEAL, FR6 VIP FR 6 Used *[id number] 08:16 MEDLINE IND[employer] PACK, CCL CUSTOM * Used *[id number] 08:16 NPTV PACER PEN, SKIN DUAL W/ RULER * Used *[id number] 08:16 Vendor Registry MEDICAL SHEATH, FR6.5 PRELUDE 11CM FR 6.5 038ACT Used *[id number] 08:16 Vendor Registry MEDICAL WIRE, 3MMJ .035 180CM 180CM Used *[id number] 08:16 NAMIC MANIFOLD, 4 PORT * Used *[id number] 08:16 NYCOMED OMNIPAQUE, 350 MG, 100ML 100ML [id number] Used [id number] 08:16 AGEE MEDICAL BLANKET,WARM AIR CCL * Used *[id number] Equipment Model, Serial, Lot Number and Expiration Data Description Model Number Serial Number Lot Number Expiration Date ANGIOSEAL, FR6 VIP [id number] 05-28-2018 History: Current Medications Medication Dosage/Unit Route Frequency Last Date/Time Taken Beta Francisco Insulin History: Allergies Allergy Reaction No Known Allergies History: Risk Factors Family History of Hypertension Dyslipidemia Previous MA Previous Heart Failure Premature CAD Yes No No No No Prior Valve Prior PCI Prior CABG Surgery No No No Cerebrovascular Peripheral Artery Chronic Lung On Dialysis Diabetes Diabetes Therapy Disease Disease Disease No No No No Yes Insulin History: Symptoms/Diagnosis Selection Items Chest pain History: Stress Tests Stress or Imaging Studies Performed Yes Stress Echo No Stress Test SPECT Stress Test SPECT Result Stress Test SPECT Ischemia Risk/Extent Yes Positive High Stress Test CMR No Cardiac CTA Coronary Calcium Score No No History: Other Disease Selection Items HTN History: Other Current Smoker Method Quit Packs a Day Years Used Pack Years No Cigarettes 25 Years Ago 1 3 3 Labs Hgb (g/dl) Hct (%) WBC (l/cumm) Platelets (thousands) 11.60-17.00 35.00-51.00 4.00-11.00 150.00-450.00 11.9 36.1 5.8 410 Glucose (mg/dl) BUN (mg/dl) Creatinine (mg/dl) BUN:Creatinine (1:x) 74.00-106.00 7.00-18.00 0.50-1.30 10.00-20.00 122 27 1.3 20.8 Na (meq/l) K (meq/l) 136.00-145.00 3.50-5.10 140 4.6 INR (PTT:PT) 0.90-1.10 0.88 CPK-MB (ng/ML) 0.50-3.60 Not Drawn Medication Medication Total Dose (Bolus/Oral) Medication Total Dosage/Unit 1% XYLOCAINE 20 mL VERSED 2 mg Medications (Bolus/Oral) Medication Time Given Dosage/Unit Administered By Reason VERSED 09/18/2017 8:26:27 AM 2 mg Julieta Myers 2 mg VERSED given in lab by Julieta Myers, RN in Left Antecubital via Peripheral IV. Ordered by Odilon Villanueva. 1% XYLOCAINE 09/18/2017 8:29:27 AM 20 mL Odilon Morrissey 20 mL 1% XYLOCAINE given in lab by Odilon Morrissey in Right Groin via Subcutaneous. Medication (Drip) Medication Time Given Dosage/Unit Concentration/Unit Diluent (ml) Solutio n IV Solutions 09/18/2017 8:14:26 AM 0 mL (IV) 500 NaCl .9 Patient arrived on IV Solutions in Left Antecubital via Peripheral IV. Pump/Drip Flow = 20 ml/hr usin g NaCl .9. Ordered by Odilon Morrissey. Initial Case Assessment Cardiovascular HR Rhythm NIBP Chest Pain 85 nsr 167/89 0 Edema Present Skin color Skin None Normal Warm Dry Circulatory - Right Pulses Dorsalis Pedis Femoral 2 2 Scale (0,1,2,3,4,d) Circulatory - Left Pulses Dorsalis Pedis Femoral 2 2 Scale (0,1,2,3,4,d) Neurological State Oriented to time-place- Alert Moves all extremities person Respiration - General Respiration Rate SpO2 (%) (B/min) 15 97 Final Case Assessment Cardiovascular HR Rhythm NIBP Chest Pain 81 nsr 150/90 0 Edema Present Skin color Skin None Normal Warm Dry Circulatory - Right Pulses Dorsalis Pedis Femoral 2 2 Scale (0,1,2,3,4,d) Circulatory - Left Pulses Dorsalis Pedis Femoral 2 2 Scale (0,1,2,3,4,d) Neurological State Oriented to time-place- Alert Moves all extremities person Respiration - General Respiration Rate SpO2 (%) (B/min) 15 97 Chronological Log Time Study Chronological Log 8:14:17 Patient arrived via Bed. 8:14:18 Patient Name, D.O.B, / Armband Verified By R.N. 8:14:18 Consent signed by the physician and the patient and verified by the Pulpit Operator staff. 8:14:19 Pre-op and post- op instructions given; patient acknowledges understanding of instructions. 8:14:19 Verbal Stimulation=2 Physical Stimulation=2 Airway=2 Respiration=2 TOTAL=8. (0=absent, 1=li mited, 2=present) 8:14:21 Presedation assessment performed by Pulpit Operator RN. 8:14:21 Immediate Presedation assesment performed by physician. 8:14:22 Patient has been NPO for More than 6Hrs. 8:14:22 Skin Breakdown- none per patient 8:14:23 Patient Warmer Placed on the Table. 8:14:24 Blanca Prominences Protected 8:14:25 A # 20 IV was noted in the Antecubital (left). Grade = 0 Patient arrived on IV Solutions in Left Antecubital via Peripheral IV. Pump/Drip Flow = 20 ml/h r using NaCl .9. Ordered 8:14: by Odilon Morrissey. 8:14:26 History and physical on the chart or being dictated. Vitals capture started with the following parameters, Patient=Adult, Interval=5 min, Initial Pr ncjpcs=911 mmHg, 8:22:36 Deflation Rate=5 mmHg, Cuff placed on Left Arm Assessment: Initial Case, HR=85 BPM, Rhythm=nsr, CWLX=624/89 mmhg, Chest Pain=0, Edema=None, Col or=Normal, Skin = Warm, Dry Right Pulses: Bao Ped=2, Femoral=2 8:22:37 Left Pulses: Bao Ped=2, Femoral=2 Neurological: State=Alert, Ox3, SABA Respiration: Resp=15 B/min, SpO2=97 % 8:23:52 HR=85 bpm, TTYP=776/89 mmhg, SpO2=98.0 %, Resp=15 B/min, Pain=0, Yaakov=10, Alvarez=2 8:25:37 Reference ECG taken 8:25:40 Bilateral groins prepped with 2% chlorhexidine, and draped after a 3 minute waiting time. 8:26:27 2 mg VERSED given in lab by Julieta Myers, RN in Left Antecubital via Peripheral IV. Order ed by Odilon Morrissey. Time Out. Correct patient, correct procedure, correct physician, power injector loaded, or not l oaded with contrast with 8:27:06 surgical team present. Time Out Concurred by MD and individual staff in procedure. 8:27:26 Pressure channel 1 zeroed. 8:27:30 Case Start 8:28:00 Verbal Stimulation=2 Physical Stimulation=2 Airway=2 Respiration=2 TOTAL=8. (0=absent, 1=calix ited, 2=present) 8:28:20 HR=94 bpm, BIWX=905/87 mmhg, SpO2=98.0 %, Resp=14 B/min, Pain=0, Yaakov=10, Alvarez=2 8:29:27 20 mL 1% XYLOCAINE given in lab by Odilon Morrissey in Right Groin via Subcutaneous. 8:33:19 HR=82 bpm, LXAE=936/84 mmhg, SpO2=96.0 %, Resp=13 B/min, Pain=0, Yaakov=10, Alvarez=2 8:34:30 Access site was Right Femoral Artery. 8:34:40 A SHEATH, FR6.5 PRELUDE 11CM FR 6.5 was advanced into the Fem Art (right) using the Percutan eous technique. 8:36:15 An injection in the Fem Art (right) was made through the SHEATH, FR6.5 PRELUDE 11CM FR 6.5. A JL 4.0 INFINITI CATHETER FR 6 was advanced over a wire. OMNIPAQUE, 350 MG, 100ML 100ML was use d for 8:36:26 injections. 8:38:18 HR=83 bpm, BZST=267/87 mmhg, SpO2=97.0 %, Resp=14 B/min, Pain=0, Yaakov=10, Alvarez=2 Recorded Pressure: Ao, HR=82, Condition=Condition 1 8:38:23 (Aorta) Ao 157/79/113 8:39:09 The LCA was injected and visualized at various angles. OMNIPAQUE, 350 MG, 100ML 100ML used. After removing the current catheter a JR 4.0 INFINITI CATHETER FR 6 was advanced over a WIRE, 3M MJ .035 180CM 8:41:59 180CM. 8:43:05 The RCA was injected and visualized at various angles. OMNIPAQUE, 350 MG, 100ML 100ML used. 8:43:21 HR=87 bpm, SGHH=908/89 mmhg, SpO2=99.0 %, Resp=13 B/min, Pain=0, Yaakov=10, Alvarez=2 8:44:33 Catheter was removed 8:46:33 ANGIOSEAL, FR6 VIP FR 6 placement in the Fem Art (right) 8:48:20 HR=84 bpm, OBME=542/90 mmhg, SpO2=98.0 %, Resp=13 B/min, Pain=0, Yaakov=10, Alvarez=2 8:48:41 Case End Assessment: Final Case, HR=81 BPM, Rhythm=nsr, MTEU=539/90 mmhg, Chest Pain=0, Edema=None, Color =Normal, Skin = Warm, Dry Right Pulses: Bao Ped=2, Femoral=2 8:48:52 Left Pulses: Bao Ped=2, Femoral=2 Neurological: State=Alert, Ox3, SABA Respiration: Resp=15 B/min, SpO2=97 % 8:49:30 Catheter(s) removed without difficulty 8:50:09 Sterile dressing applied to site 8:50:10 No case complications noted. 8:50:11 Cine recording checked. 8:50:12 Bedside Report will be given. 8:50:13 Implantable Device card placed in patient's chart. 8:50:14 A Left Heart Cath was performed. 8:50:20 A Left Heart Cath was performed. 8:53:23 HR=81 bpm, RIFJ=528/78 mmhg, SpO2=99.0 %, Resp=15 B/min, Pain=0, Yaakov=10, Alvarez=2 8:58:04 Vitals capture stopped. 8:58:28 Patient moved to stretcher End Study - Contrast Media Used In Study Contrast Total Opened (mL) Total Used (mL) Total Wasted (mL) Omnipaque 40 40 0 End Study - Maximum Contrast Load Max Contrast Load (mL) 309.3 End Study - Radiation Exposure Fluoro Time (minutes) 2.2 End Study - Patient Disposition Complications Transferred To Interventional Outcome No Pulpit Operator Holding No attempt made
[2017-09-18] MEDS ORDERED: ATROPINE SULFATE 1 MG/ML VIAL IV PUSH PRN (09:00)
[2017-09-18] MEDS ORDERED: ONDANSETRON HCL 4 MG/2 ML VIAL IV PUSH PRN (09:00)
[2017-09-18] MEDS ORDERED: MISC INFORMATION XX ONE (09:00)
[2017-09-18] MEDS ORDERED: SODIUM CHLOR 0.9% 250 ML INJ 250 ML IV PRN (09:00)
--- NOTE | 2017-09-18 09:30 | MA ---
cc: Odilon Morrissey MD DATE: 09/18/2017 PROCEDURE: The patient was prepped and draped in the usual fashion. A 6 sheath was inserted percutaneously in the right femoral artery. Coronary angiography was done with Rochelle preformed catheters. At the end of the procedure, Angio-Seal technique was used to close the arteriotomy. RESULTS: Aortic pressure was initially 170/90. This fell to 150/80 by the end of the procedure. CORONARY ANGIOGRAPHY: Left main coronary was normal. Left anterior descending artery was normal throughout its course. Left circumflex artery was normal throughout its course. Right coronary was anatomically dominant and normal throughout its course. CONCLUSIONS: Normal coronary arteries. No evidence for significant coronary artery disease. MD SIRISHA Watts/RIO , 09:14 AM , 09:29 AM
== END 2017-09-18 11:35 | disposition home or self-care (01) ==
LOC: HDOC 06:11 → HDIC 06:11 → HDOC 11:35
PROVIDERS: ATTEND Internal Medicine Cardiovascular Disease
DX: R94.39 Abnormal result of other cardiovascular function study (principal)
CPT/HCPCS: 93458; 99152; 99153; C1760; C1769; C1893; G0269; J1644; J2250; J3010; J7030; Q9967